=== PATIENT | male | born 1965 | race Caucasian/White ===

== ENCOUNTER → 2020-05-04 | Outpatient (CLI) | payer MEDICAID ==
[2020-05-04 13:52] LABS: Basophils # (A) 0.1 k/uL (0-0.2); Basophils % (A) 1 %; Eosinophils # (A) 0.1 k/uL (0-0.7); Eosinophils % (A) 2 %; HCT 47.2 % (39.0-53.0); HGB 15.8 gm/dL (13.0-17.5); Lymphocytes # (A) 2.4 k/uL (1.0-4.8); Lymphocytes % (A) 27 %; MCH 29.8 pg (25.0-35.0); MCHC 33.5 g/dL (31.0-37.0); Mean Platelet Volume 6.8; Monocytes # (A) 0.6 k/uL (0-1.0); Monocytes % (A) 7 %; Neutrophils # (A) 5.5 k/uL (1.3-7.7); Neutrophils % (A) 62 %; Platelet Count 216 k/uL (150-450); RDW 13.5 % (11.5-15.5); WBC 8.8 k/uL (3.8-10.6)
[2020-05-04 19:21] LABS: LDL Cholesterol,Calculated 118.2 mg/dL (0.0-131.0); VLDL Calculation 33.8 mg/dL (5.00-40.00)
[2020-05-04 19:22] LABS: African American GFR (CKD) 87.1 (60.0-200.0); Albumin 4.6 g/dL (3.80-4.90); Albumin/Globulin Ratio 1.84 (1.60-3.17); Anion Gap 9.4 mmol/L (4.00-12.00); BUN/Creat Ratio 14.55 Ratio (12.00-20.00); Calcium 9.8 mg/dL (8.7-10.3); Carbon Dioxide 24.6 mmol/L (21.6-31.8); Globulin 2.5 g/dL (1.6-3.3); Non-African American GFR(CKD) 75.2 (60.0-200.0); Potassium 4.6 mmol/L (3.5-5.5); Total Bilirubin 2.1 mg/dL (0.2-1.2); Total Protein 7.1 g/dL (6.2-8.2)
[2020-05-04 19:32] LABS: PSA Annual Screen 0.8 ng/mL (0.0-4.0)
== END | disposition home or self-care (01) ==
LOC: LABWHC1 12:27
PROVIDERS: ATTEND Internal Medicine Critical Care Medicine
DX: Z00.00 Encounter for general adult medical examination without abnormal findings (principal); E78.5 Hyperlipidemia, unspecified; Z12.5 Encounter for screening for malignant neoplasm of prostate
CPT/HCPCS: 84439; 80061; 80053; 84443; 85025; 36415; G0103

== ENCOUNTER → 2020-06-01 | Day surgery (SDC) | payer MEDICAID ==
[2020-05-30 13:27] VITALS: BMI 34.7
[~2020-06-01] MED LIST: LACTATED RINGERS 1,000 ML IV SCH; LIDOCAINE 1% (10MG/ML) FOR IV START SQ ONE; PROPOFOL 10 MG/ML 20 ML VIAL IV ONE
[2020-06-01 10:22] VITALS: TEMP 97.4
--- NOTE | 2020-06-01 11:53 | P.PCN ---
Date of Procedure: 06/01/20 Procedure(s) Performed: BRIEF HISTORY: Patient is a 55-year-old pleasant white male scheduled for an elective colonoscopy as a part of screening for colorectal neoplasia. PROCEDURE PERFORMED: Colonoscopy with snare polypectomy, hot biopsy, Endo Clip placement and tattooing with Lacey ink. PREOPERATIVE DIAGNOSIS: Screening for colon cancer. IV sedation per Anesthesia. PROCEDURE: After informed consent was obtained, the patient, was brought into the endoscopy unit. IV sedation was administered by Anesthesia under continuous monitoring. Digital rectal examination was normal. Initially the Olympus CF-160 flexible video colonoscope was then inserted in the rectum, gradually advanced into the cecum without any difficulty. Careful examination was performed as the scope was gradually being withdrawn. Ileocecal valve and the appendiceal orifice were visualized and appeared normal. Prep was fair. Mucosa of the cecum appeared normal. In the ascending colon there was a 2 mm and 1.5 cm broad-based polyps removed by snare polypectomy. In the hepatic flexure there was a 3 cm broad-based polyp that was removed in a piecemeal fashion and almost complete polypectomy was performed. Following this Endo Clip was placed to prevent post- polypectomy bleed. He was performed with Lacey ink around the polyp. In the descending colon at 65 cm from the anal was there was a 1 cm flat polyp that could not be removed by snare polypectomy. In that was removed by hot biopsy forceps. The rest of the descending colon, sigmoid colon, and rectum appeared normal. Retroflexion was performed in the rectum and no lesions were seen. The patient tolerated the procedure well. IMPRESSION: 2 cm and 1.5 cm broad-based ascending colon polyp status post snare polypectomy 3 cm broad-based hepatic flexure polyp status post piecemeal snare polypectomy followed by Endo Clip placement and tattooing with Lacey ink 1 cm flat proximal descending colon polyp at 65 cm from the anal verge status post hot biopsy RECOMMENDATIONS: Findings of this examination were discussed with the patient as well as his family. He was advised to follow with the biopsy results. He'll be seen in office in one to 2 weeks. Reason the biopsy results will plan a repeat colonoscopy in 6 months.
[2020-06-01 12:05] VITALS: BP 144/85; PULSE 69; RESP 16
== END ==
LOC: ORWHC2ENDO 09:59
PROVIDERS: ATTEND Internal Medicine Gastroenterology
DX: Z12.11 Encounter for screening for malignant neoplasm of colon (principal); D12.2 Benign neoplasm of ascending colon; D12.3 Benign neoplasm of transverse colon; D12.4 Benign neoplasm of descending colon; D12.8 Benign neoplasm of rectum; K21.9 Gastro-esophageal reflux disease without esophagitis; E78.5 Hyperlipidemia, unspecified; J44.9 Chronic obstructive pulmonary disease, unspecified; F17.210 Nicotine dependence, cigarettes, uncomplicated; Z79.899 Other long term (current) drug therapy
CPT/HCPCS: 88305; 45384; 45385; 45381; J2704; 44404; 45382

== ENCOUNTER → 2020-06-06 | Outpatient (CLI) | payer MEDICAID ==
[2020-06-06 09:04] LABS: Bilirubin, Delta 0.3 mg/dL (0.0-0.2); Bilirubin,Unconjugated 1.7 mg/dL (0.0-1.1)
--- NOTE | 2020-06-06 09:55 | CTL ---
EXAMINATION TYPE: CT Low Dose Lung DATE OF EXAM ORDERED: 06/06/2020 HISTORY: Personal history tobacco use. Lung cancer screening CT DLP: [address] CTDI: 3.6 mGy Automated exposure control for dose reduction was used. SCREENING VISIT: Initial COMPARISON: None TECHNIQUE: Low dose computed tomography scan was performed through the chest at 1 mm thick sections a nd reconstructed images in the coronal plane at [address] DIAGNOSTIC QUALITY: Satisfactory FINDINGS: LUNG NODULES: None. LUNGS: COPD: Severity: None Fibrosis: Severity: None Lymph nodes: None. There are couple of small axillary lymph nodes noted. Other findings: None RIGHT PLEURAL SPACE: Effusion: None Calcification: None Thickening: None Pneumothorax: None LEFT PLEURAL SPACE: Effusion: None Calcification: None Thickening: None Pneumothorax: None HEART: Heart Size: Normal Coronary calcification: Mild Pericardial effusion: None OTHER FINDINGS: Upper abdomen: Normal Bony thorax: Normal Supraclavicular region: Normal Other: Ascending thoracic aorta at the level the main pulmonary artery measures 3.3 cm. The main pul monary artery at the bifurcation measures 2.3 cm. IMPRESSION: Negative low-dose CT chest FOLLOW UP CT CHEST RECOMMENDATION: Low-dose CT chest [address] LUNG RAD: 1
== END | disposition home or self-care (01) ==
LOC: RADCTMAIN 08:09
PROVIDERS: ATTEND Internal Medicine Critical Care Medicine
DX: Z12.2 Encounter for screening for malignant neoplasm of respiratory organs (principal); E78.5 Hyperlipidemia, unspecified; F17.210 Nicotine dependence, cigarettes, uncomplicated
CPT/HCPCS: 82248; 36415; G0297

== ENCOUNTER → 2021-01-11 | Outpatient (CLI) | payer MEDICAID ==
[2021-01-12 03:03] LABS: Albumin 4.7 g/dL (3.80-4.90); Albumin/Globulin Ratio 1.88 (1.60-3.17); Bilirubin, Conjugated 0.5 mg/dL (0.20-0.40); Bilirubin,Unconjugated 1.5 mg/dL; Globulin 2.5 g/dL (1.6-3.3); Total Protein 7.2 g/dL (6.2-8.2)
[2021-01-12 15:13] LABS: Hepatitis B Surface Antigen Non-Reactive (Non-Reactive); Hepatitis C IgG Antibody Non-Reactive (Non-Reactive)
== END | disposition home or self-care (01) ==
LOC: LABWHC1 13:00
PROVIDERS: ATTEND Nurse Practitioner
DX: R17 Unspecified jaundice (principal)
CPT/HCPCS: 36415; 80076; 86803; 87340

== ENCOUNTER 2021-01-24 07:46 | Day surgery (SDC) | payer MEDICAID ==
[2021-01-22 12:06] VITALS: BMI 35.7
[~2021-01-24 07:46] MED LIST changes: +LIDOCAINE 1% (10MG/ML) FOR IV START INTRADERMA PRN; -LIDOCAINE 1% (10MG/ML) FOR IV START SQ ONE; -PROPOFOL 10 MG/ML 20 ML VIAL IV ONE
[2021-01-24] MEDS ORDERED: PROPOFOL 10 MG/ML 20 ML VIAL IV ONE (08:33)
[2021-01-24 08:34] VITALS: TEMP 99
--- NOTE | 2021-01-24 09:00 | P.PCN ---
Date of Procedure: 01/24/21 Procedure(s) Performed: BRIEF HISTORY: Patient is a 55-year-old pleasant white male scheduled for an elective colonoscopy as a part of surveillance of prior colonoscopy done 6 months ago, in June 2020 that showed multiple large colon polyps and biopsies revealed tubular adenoma. PROCEDURE PERFORMED: Colonoscopy with snare polypectomy. PREOPERATIVE DIAGNOSIS: Follow-up large colon polyps noted in June 2020. IV sedation per Anesthesia. PROCEDURE: After informed consent was obtained, the patient, was brought into the endoscopy unit. IV sedation was administered by Anesthesia under continuous monitoring. Digital rectal examination was normal. Initially the Olympus CF-160 flexible video colonoscope was then inserted in the rectum, gradually advanced into the cecum without any difficulty. Careful examination was performed as the scope was gradually being withdrawn. Ileocecal valve and the appendiceal orifice were visualized and appeared normal. Prep was poor in some areas of the colon.. Mucosa of the cecum appeared normal. In the ascending colon there was a 5 mm residual polyp that was removed by snare polypectomy. There was no residual polyp noted in the hepatic flexure. Mucosa of the transverse colon, descending colon, appeared normal. In the sigmoid colon there was a 5 mm polyp removed by snare polypectomy. Scattered sigmoid diverticula seen. Rest of the sigmoid colon, and rectum appeared normal. Retroflexion was performed in the rectum and small internal and external hemorrhoids noted The patient tolerated the procedure well. IMPRESSION: 5 mm residual ascending colon polyp status post polypectomy No residual polyp noted in the hepatic flexure 5 mm colon polyp status post polypectomy Scattered left sided diverticulosis Small internal and external hemorrhoids RECOMMENDATIONS: Findings of this examination were discussed with the patient as well as his family. He was advised to follow with the biopsy sites. Recommend repeat surveillance colonoscopy in one year from now.
[2021-01-24 09:19] VITALS: BP 117/71; PULSE 75; RESP 16
== END 2021-01-24 10:03 | disposition home or self-care (01) ==
LOC: ORWHC2ENDO 07:46
PROVIDERS: ATTEND Internal Medicine Gastroenterology
DX: Z12.11 Encounter for screening for malignant neoplasm of colon (principal); K63.5 Polyp of colon; K57.30 Diverticulosis of large intestine without perforation or abscess without bleeding; K64.8 Other hemorrhoids; K64.4 Residual hemorrhoidal skin tags; Z86.010 Personal history of colon polyps; J44.9 Chronic obstructive pulmonary disease, unspecified; F17.210 Nicotine dependence, cigarettes, uncomplicated; Z98.890 Other specified postprocedural states; K21.9 Gastro-esophageal reflux disease without esophagitis; Z79.82 Long term (current) use of aspirin; Z79.899 Other long term (current) drug therapy
CPT/HCPCS: 88305; 45385; J2704

== ENCOUNTER → 2021-02-21 | Outpatient (CLI) | payer MEDICAID ==
--- NOTE | 2021-02-21 07:36 | US ---
EXAMINATION TYPE: US liver DATE OF EXAM: 02/21/2021 COMPARISON: NONE CLINICAL HISTORY: R17 UNSPECIFIED JAUNDICE. recent jaundice, physician thinks it might be Gilbert's s yndrome versus other etiology. EXAM MEASUREMENTS: Liver Length: 17.3 cm Gallbladder Wall: 0.2 cm CBD: 0.7 cm Right Kidney: 11.0 x 5.9 x 5.1 cm Pancreas: limited views appear wnl Liver: wnl Gallbladder: wnl Evidence for sonographic Garcia's sign: no CBD: wnl Right Kidney: wnl IMPRESSION: No definite sonographic abnormality seen in the abdomen.
== END | disposition home or self-care (01) ==
LOC: RADUSWWP 07:00
PROVIDERS: ATTEND Internal Medicine Gastroenterology
DX: R17 Unspecified jaundice (principal)
CPT/HCPCS: 76705

== ENCOUNTER → 2021-03-08 | Outpatient (CLI) | payer MEDICAID | END | disposition home or self-care (01) | DX: M19.042 Primary osteoarthritis, left hand (principal) ==

== ENCOUNTER → 2021-10-20 | Outpatient (CLI) | payer MEDICAID ==
--- NOTE | 2021-10-21 10:21 | CTL ---
EXAMINATION TYPE: CT Low Dose Lung DATE OF EXAM ORDERED: 10/20/2021 HISTORY: 56-year-old male Z87.891 Personal history of tobacco use. Lung cancer screening CT DLP: 149.[address] CTDI: 4.1 mGy Automated exposure control for dose reduction was used. SCREENING VISIT: Annual follow-up COMPARISON: 06/06/2020 TECHNIQUE: Low dose computed tomography scan was performed through the chest with coronal and sagitta l reconstructions. CT DIAGNOSTIC QUALITY: Satisfactory FINDINGS: Heart normal size without pericardial effusion. Mild to moderate aortic valvular calcifications are n oted. Borderline ectasia ascending aorta 3.5 cm. Minimal atherosclerotic arch calcifications. Conventional arch vessel branching anatomy. Mild asymmetric gynecomastia on the right is redemonstrated. No thoracic lymphadenopathy by CT size criteria. Mild diffuse bronchial wall thickening. Stable 2 mm posterior left upper lobe pulmonary nodule, axial image 49. No consolidation or pleural effusion. Some strandy atelectasis is noted. Tiny hiatal hernia. Visualized upper abdomen shows mild colonic diverticulosis. Bones: Moderate multilevel degenerative disc disease. Accentuated lower thoracic kyphosis. Disc osteo phyte complexes at T11-T12 and T12-L1 one day a contributing to at least mild spinal canal stenosis. IMPRESSION: 1. No new or suspicious pulmonary nodules. 2. Mild diffuse bronchial wall thickening could represent bronchitis or chronic asthma. Recommend smo leonard cessation. 3. Tiny hiatal hernia. 4. Moderate degenerative disc disease. Disc osteophyte complex at the T11-T12 and T12-L1 contributes to at least mild spinal canal stenosis. CT LUNG RAD AND CT CHEST RECOMMENDATION: Lung-Rad 2 Benign Appearance or Behavior: Continue annual sc reening with LDCT in 12 months. S Modifier (other clinically significant findings): None
== END | disposition home or self-care (01) ==
LOC: RADCTMAIN 07:43
PROVIDERS: ATTEND Internal Medicine Critical Care Medicine
DX: Z12.2 Encounter for screening for malignant neoplasm of respiratory organs (principal); K44.9 Diaphragmatic hernia without obstruction or gangrene; J98.09 Other diseases of bronchus, not elsewhere classified; Z87.891 Personal history of nicotine dependence
CPT/HCPCS: 71271

== ENCOUNTER → 2021-12-14 | Outpatient (CLI) | payer MEDICAID ==
[2021-12-14 11:43] LABS: Partial Thromboplastin Time 24.6 sec (22.0-30.0); Prothrombin Time 10.8 sec (9.0-12.0)
[2021-12-14 18:31] LABS: Basophils # (A) 0.06 X 10*3/uL (0.00-0.10); Basophils % (A) 0.7 %; Eosinophils # (A) 0.16 X 10*3/uL (0.04-0.35); Eosinophils % (A) 1.8 %; HCT 45.5 % (39.6-50.0); Immature Grans, Automated 0.5 %; Lymphocytes # (A) 1.86 X 10*3/uL (0.90-5.00); Lymphocytes % (A) 21.3 %; MCH 29.4 pg (27.0-32.0); MCV 89.2 fL (80.0-97.0); Mean Platelet Volume 9.9 fL (9.5-12.2); NRBC Per 100 WBC 0 /100 WBCS (0.0-0.0); Neutrophils # (A) 5.91 X 10*3/uL (1.80-7.70); Neutrophils % (A) 67.7 %; Platelet Count 208 X 10*3/uL (140-440); RDW 13.2 % (11.5-14.5); WBC 8.73 X 10*3/uL (4.50-10.00)
[2021-12-14 18:37] LABS: African American GFR (CKD) 86.5 (60.0-200.0); Albumin 4.5 g/dL (3.8-4.9); Albumin/Globulin Ratio 1.61 (1.60-3.17); Anion Gap 9.8 mmol/L (10.00-18.00); BUN/Creat Ratio 9.55 Ratio (12.00-20.00); Bilirubin, Conjugated 0.24 mg/dL (0.20-0.40); Bilirubin,Unconjugated 1.41 mg/dL (0.20-1.00); Blood Urea Nitrogen 10.5 mg/dL (9.0-27.0); Calcium 9.5 mg/dL (8.7-10.3); Carbon Dioxide 25.7 mmol/L (20.0-27.5); Globulin 2.8 g/dL (1.6-3.3); Non-African American GFR(CKD) 74.7 (60.0-200.0); Potassium 4.9 mmol/L (3.5-5.5); Total Bilirubin 1.7 mg/dL (0.30-1.20); Total Protein 7.3 g/dL (6.2-8.2)
== END | disposition home or self-care (01) ==
LOC: LABWHC1 09:22
PROVIDERS: ATTEND Internal Medicine Critical Care Medicine
DX: Z00.00 Encounter for general adult medical examination without abnormal findings (principal); R10.11 Right upper quadrant pain
CPT/HCPCS: 36415; 80053; 82150; 82248; 83690; 85025; 85610; 85730

== ENCOUNTER 2022-03-13 06:11 | Day surgery (SDC) | payer MEDICAID ==
[2022-03-12 11:26] VITALS: BMI 36.3
[2022-03-13] MEDS ORDERED: LACTATED RINGERS 1,000 ML IV SCH (06:12)
[2022-03-13 06:59] VITALS: TEMP 97
[2022-03-13] MEDS ORDERED: KETAMINE 10 MG/ML 20 ML VIAL ONE (07:20)
[2022-03-13] MEDS ORDERED: LIDOCAINE 2% INJ 20 MG/ML (2 ML VIAL) ONE (07:20)
[2022-03-13] MEDS ORDERED: PROPOFOL 10 MG/ML 20 ML VIAL IV ONE (07:20)
--- NOTE | 2022-03-13 07:55 | P.PCN ---
Date of Procedure: 03/13/22 Procedure(s) Performed: Brief history: Patient is a pleasant 56-year-old white male scheduled for an elective upper endoscopy as well as colonoscopy as a part of evaluation of persistent history of GERD and prior history of colon polyps. He was noted to have multiple large colon polyps in June 2020. 6-year-old His last colonoscopy was in December 2020 and was noted to have residual polyps that were removed. Procedure performed: Esophagogastroduodenoscopy biopsy Colonoscopy with snare polypectomy and hot biopsy Preoperative diagnosis: GERD History of colon polyps Anesthesia: MAC Procedure: After informed consent was obtained from the patient was brought into the endoscopy unit and IV sedation was administered by anesthesia under continuous monitoring. Initially upper endoscopy was done. The Olympus GF 160 video endoscope was inserted inserted into the mouth and esophagus intubated without any difficulty and was gradually advanced into the stomach and duodenum and carefully examined. The bulb and second part of the duodenum appeared normal. The scope was withdrawn into the stomach adequately insufflated with air and upon careful examination the antrum had mild gastritis and biopsies were done from this area. body, cardia and fundus appeared normal. The scope was then withdrawn into the esophagus. The GE junction was located at 40 cm to the incisors. Small hiatal hernia noted. There was a short segment of Haskins's esophagus extending from 39-40 cm from the incisors and multiple biopsies were done from this area. There were no erythema erosions or ulcerations. Rest of the esophagus appeared normal. Patient tolerated the procedure well. At this time the patient continued to remain sedation. Initial digital rectal examination was normal. Olympus CF 160 video colonoscope was then inserted into the rectum and gradually advanced to the cecum without any difficulty. Careful examination was performed as the scope was gradually being withdrawn. The prep was excellent. The cecum, ascending colon, transverse colon, appeared normal. The descending colon there was a 1 cm flat polyp was removed by snare polypectomy followed by hot biopsy. Rest of the descending colon, sigmoid colon and rectum appeared normal. Scattered left-sided diverticulosis seen. Ret roflexion was performed in the rectum and no lesions were noted. Patient tolerated the procedure well. Impression: 1. Upper endoscopy revealed small hiatal hernia, short segment Haskins's esophagus and mild antral gastritis 2. Colonoscopy revealed a 1 cm flat descending colon polyp status post snare polypectomy followed by hot biopsy and scattered sigmoid diverticulosis Recommendations: Findings of this examination were discussed with the patient as well as his family. He was advised to follow with the biopsy results. Recommend repeat colonoscopy in 3 years. If the biopsy of the Haskins's esophagus confirms Haskins's esophagus with no evidence of dysplasia he can have a repeat upper endoscopy in 3 years also.
[2022-03-13 08:16] VITALS: BP 131/78; PULSE 65; RESP 18
[2022-03-13] MEDS ORDERED: ONDANSETRON 4 MG/2 ML VIAL ONE (09:17)
== END 2022-03-13 09:38 | disposition home or self-care (01) ==
LOC: ORWHC2ENDO 06:11
PROVIDERS: ATTEND Internal Medicine Gastroenterology
DX: Z12.11 Encounter for screening for malignant neoplasm of colon (principal); K63.5 Polyp of colon; K29.50 Unspecified chronic gastritis without bleeding; K22.70 Barrett's esophagus without dysplasia; K44.9 Diaphragmatic hernia without obstruction or gangrene; K57.30 Diverticulosis of large intestine without perforation or abscess without bleeding; K21.9 Gastro-esophageal reflux disease without esophagitis; Z86.010 Personal history of colon polyps; E78.5 Hyperlipidemia, unspecified; F17.200 Nicotine dependence, unspecified, uncomplicated; Z79.899 Other long term (current) drug therapy
CPT/HCPCS: 88305; 45384; 45385; 43239; J2704; J2001

== ENCOUNTER → 2023-10-29 | Outpatient (CLI) | payer MEDICAID ==
--- NOTE | 2023-10-29 14:06 | CTL ---
EXAMINATION TYPE: CT Low Dose Lung DATE OF EXAM ORDERED: 10/29/2023 HISTORY: 58-year-old male current smoker with 17 pack-year history. Z12.2 SCREENING F17.210 NICOTINE DEPENDENCE, CIGARETTES. Lung cancer screening CT DLP: [address] CTDI: 2.91 mGy Automated exposure control for dose reduction was used. SCREENING VISIT: Annual follow-up COMPARISON: 10/28/2022 TECHNIQUE: Low dose computed tomography scan was performed through the chest with coronal and sagitta l reconstructions. CT DIAGNOSTIC QUALITY: Satisfactory FINDINGS: Heart upper limits of normal in size without pericardial effusion. Mild aortic valvular calcification s. Aorta normal caliber with conventional arch vessel branching anatomy. No thoracic lymph adenopathy by CT size criteria. Mild to moderate diffuse bronchial wall thickening without consolidation or pleural effusion. Some narrowing of the trachea at and just below the level of the thoracic inlet. * Unchanged 4 mm anterior right midlung pulmonary nodule, axial image 142. * Unchanged 3 mm posterior left upper lung pulmonary nodule, axial image 46. * No new pulmonary nodule is seen. Tiny hiatal hernia. There may be some underlying fatty infiltration of the liver in the visualized up per abdomen and some scattered colonic diverticulosis. Bones: Moderate degenerative disc disease mid to lower thoracic spine. IMPRESSION: 1. LungRADS 2, benign. A couple pulmonary nodules measuring up to 4 mm remain unchanged. 2. Bronchial wall thickening may be seen with bronchitis or asthma. 3. There is some narrowing of the trachea at and just below the thoracic inlet. Correlate for any pot ential symptoms of tracheomalacia. CT LUNG RAD AND CT CHEST RECOMMENDATION: Lung-Rad 2 Benign Appearance or Behavior: Continue annual sc reening with LDCT in 12 months. S Modifier (other clinically significant findings): None
== END | disposition home or self-care (01) ==
LOC: RADCTMAIN 12:17
PROVIDERS: ATTEND Internal Medicine Critical Care Medicine
DX: Z12.2 Encounter for screening for malignant neoplasm of respiratory organs (principal); R91.8 Other nonspecific abnormal finding of lung field; J98.09 Other diseases of bronchus, not elsewhere classified; F17.210 Nicotine dependence, cigarettes, uncomplicated
CPT/HCPCS: 71271

== ENCOUNTER 2024-09-18 11:07 | Emergency (ER) | payer MEDICAID ==
--- NOTE | 2024-09-18 11:12 | ED ---
URI HPI - General Chief Complaint: Upper Respiratory Infection Stated Complaint: Influenza A + Time Seen by Provider: 09/18/24 11:12 Source: patient, RN notes reviewed Mode of arrival: ambulatory Limitations: no limitations - History of Present Illness Initial Comments: This is a 59-year-old male with history of COPD type 2 diabetes presenting to the emergency department with his for complaint of bodyaches nausea congestion. Patient states that symptoms started on 09/15/24, he went to urgent care on 09/16/2024 was diagnosed with influenza A and was started on Tamiflu in the evening. States that his symptoms have not improved. He denies fevers, productive cough, abdominal pain. States he has not taken any medication today alleviate symptoms. - Related Data Home Medications Medication Instructions Recorded Confirmed Atorvastatin [Lipitor] 20 mg PO DAILY 05/30/20 03/13/22 Calcium Carbonate [Tums] 500 mg PO TID PRN 05/30/20 03/13/22 Previous Rx's Medication Instructions Recorded Dicyclomine [Bentyl] 20 mg PO QID PRN #15 tablet 11/03/22 Ipratropium-Albuterol Nebulize 3 ml INHALATION QID #25 each 09/18/24 [Duoneb 0.5 mg-3 mg/3 ml Soln] Allergies Allergy/AdvReac Type Severity Reaction Status Date / Time No Known Allergies Allergy Verified 11/03/22 13:49 Review of Systems ROS Statement: Those systems with pertinent positive or pertinent negative responses have been documented in the HPI. ROS Other: All systems not noted in ROS Statement are negative. Past Medical History Past Medical History: COPD, GERD/Reflux, Hyperlipidemia Additional Past Medical History / Comment(s): lower rt abdominal painintermittent w/ bleeding intermittently with stools History of Any Multi-Drug Resistant Organisms: None Reported Past Surgical History: Orthopedic Surgery Additional Past Surgical History / Comment(s): lt shoulder repair Past Anesthesia/Blood Transfusion Reactions: No Reported Reaction Past Psychological History: No Psychological Hx Reported Smoking Status: Current every day smoker Past Alcohol Use History: None Reported Past Drug Use History: None Reported - Past Family History Mother Family Medical History: No Reported History General Exam Limitations: no limitations General appearance: alert, in no apparent distress Neck exam: Present: normal inspection. Absent: tenderness, meningismus, lymphadenopathy Respiratory exam: Present: wheezes (bilateral), decreased breath sounds. Absent: respiratory distress, rales, rhonchi, stridor, chest wall tenderness Cardiovascular Exam: Present: regular rate, normal rhythm, normal heart sounds. Absent: systolic murmur, diastolic murmur, rubs, gallop, clicks GI/Abdominal exam: Present: soft, normal bowel sounds. Absent: distended, tenderness, guarding, rebound, rigid Extremities exam: Present: normal inspection, full ROM, normal capillary refill. Absent: tenderness, pedal edema, joint swelling, calf tenderness Back exam: Present: normal inspection Skin exam: Present: warm, dry, intact, normal color. Absent: rash Course Vital Signs 09/18/24 09/18/24 09/18/24 11:08 11:19 12:04 Temperature 98.3 F Pulse Rate 85 84 Respiratory 16 22 Rate Blood Pressure 145/87 O2 Sat by Pulse 97 Oximetry 09/18/24 09/18/24 12:13 12:20 Temperature 98.1 F Pulse Rate 84 84 Respiratory 18 Rate Blood Pressure 138/79 O2 Sat by Pulse 98 Oximetry Medical Decision Making - Medical Decision Making Was pt. sent in by a medical professional or institution (, PA, WELDING PANTOGRAPH MACHINE OPERATOR, urgent care, hospital, or retirement...) When possible be specific @ -No Did you speak to anyone other than the patient for history (EMS, parent, family, police, friend...)? What history was obtained from this source @ -No Did you review nursing and triage notes (agree or disagree)? Why? @ -I reviewed and agree with nursing and triage notes Were old charts reviewed (outside hosp., previous admission, EMS record, old EKG, old radiological studies, urgent care reports/EKG's, retirement records)? Report findings @ -No old charts were reviewed Differential Diagnosis (chest pain, altered mental status, abdominal pain women, abdominal pain men, vaginal bleeding, weakness, fever, dyspnea, syncope, headache, dizziness, GI bleed, back pain, seizure, CVA, palpatations, mental health, musculoskeletal)? @ -COVID 19, RSV, influenza, pneumonia, acute bronchitis, URI, this list is not all inclusive EKG interpreted by me (3pts min.). @ -None X-rays interpreted by me (1pt min.). @ -Chest x-ray reveals no acute cardiopulmonary process or disease CT interpreted by me (1pt min.). @ -None done U/S interpreted by me (1pt. min.). @ -None done What testing was considered but not performed or refused? (CT, X-rays, U/S, labs)? Why? @ -Viral testing was conservative at this time. Patient has tested positive for influenza A 2 days prior therefore patient has declined repeat viral testing What meds were considered but not given or refused? Why? @ -None Did you discuss the management of the patient with other professionals (professionals i.e. , PA, WELDING PANTOGRAPH MACHINE OPERATOR, lab, RT, psych nurse, health social work professor, audio production instructor, teacher, special skills officer, rehabilitation case coordinator)? Give summary @ -No Was smoking cessation discussed for >3mins.? @ -No Was critical care preformed (if so, how long)? @ -No Were there social determinants of health that impacted care today? How? (Homelessness, low income, unemployed, alcoholism, drug addiction, transportation, low edu. Level, literacy, decrease access to med. care, residential, rehab)? @ -No Was there de-escalation of care discussed even if they declined (Discuss DNR or withdrawal of care, Hospice)? DNR status @ -No What co-morbidities impacted this encounter? (DM, HTN, Smoking, COPD, CAD, Cancer, CVA, ARF, Chemo, Hep., AIDS, mental health diagnosis, sleep apnea, morbid obesity)? @ -None Was patient admitted / discharged? Hospital course, mention meds given and route, prescriptions, significant lab abnormalities, going to OR and other pertinent info. @ -discharged. 59-year-old male presenting with congestion, cough, body aches. There is noted decreased lung sounds and wheezes bilaterally. With patient's history of COPD and influenza A diagnosis patient is evaluated via chest x-ray and is provided with breathing treatment addition to Tylenol for body aches. Chest x-ray is unremarkable. Recommend patient continue supportive treatment at home such as using Tylenol Motrin as needed for body aches. He sent a refill of DuoNeb solution and instructed to continue nebulizer treatments at home. Discussed with Dr. Stauffer Undiagnosed new problem with uncertain prognosis? @ -No Drug Therapy requiring intensive monitoring for toxicity (Heparin, Nitro, Insulin, Cardizem)? @ -No Were any procedures done? @ -No Diagnosis/symptom? @ -infuenza A Acute, or Chronic, or Acute on Chronic? @ -acute Uncomplicated (without systemic symptoms) or Complicated (systemic symptoms)? @ -uncomplicated Side effects of treatment? @ -No Exacerbation, Progression, or Severe Exacerbation? @ -No Poses a threat to life or bodily function? How? (Chest pain, [place], [place], pneumonia, PE, COPD, DKA, ARF, appy, cholecystitis, CVA, Diverticulitis, Homicidal, Suicidal, threat to staff... and all critical care pts) @ -No Disposition Clinical Impression: Influenza A Disposition: HOME SELF-CARE Condition: Good Instructions (If sedation given, give patient instructions): Influenza (ED) Additional Instructions: Please return to the Emergency Department if symptoms worsen or any other concerns. Prescriptions: Ipratropium-Albuterol Nebulize [Duoneb 0.5 mg-3 mg/3 ml Soln] 3 ml INHALATION QID #25 each Is patient prescribed a controlled substance at d/c from ED?: No Referrals: Marylou Reilly MD [Primary Care Provider] - 1-2 days Time of Disposition: 12:03
[2024-09-18] MEDS: ACETAMINOPHEN TAB 500 MG TAB PO STA (11:24)
--- NOTE | 2024-09-18 11:49 | XR ---
EXAMINATION TYPE: XR chest 2V DATE OF EXAM: 09/18/2024 11:36 AM COMPARISON: None CLINICAL INDICATION: Male, 59 years old with history of cough, chills, congestion, hx COPD; [facility] TECHNIQUE: XR chest 2V Frontal and lateral views of the chest. FINDINGS: Lungs/Pleura: There is no evidence of pleural effusion, focal consolidation, or pneumothorax. Pulmonary vascularity: Unremarkable. Heart/mediastinum: Cardiomediastinal silhouette is unremarkable. Musculoskeletal: No acute osseous pathology. IMPRESSION: No acute cardiopulmonary disease/process. [facility] Ruth, , 09/18/2024 11:46 AM
[2024-09-18] MEDS: IPRATROPIUM-ALBUTEROL 3 ML NEB INHALATION STA (12:03)
[2024-09-18 12:07] VITALS: PULSE 84
[2024-09-18 12:22] VITALS: BP 138/79; RESP 18; TEMP 98.1
== END 2024-09-18 11:12 | disposition home or self-care (01) ==
LOC: EC 11:07
DX: J10.1 Influenza due to other identified influenza virus with other respiratory manifestations (principal); F17.200 Nicotine dependence, unspecified, uncomplicated
CPT/HCPCS: 71046; 94640; 99283

== ENCOUNTER → 2024-10-30 | Outpatient (CLI) | payer MEDICAID ==
--- NOTE | 2024-10-30 08:41 | CTL ---
EXAMINATION TYPE: CT Low Dose Lung DATE OF EXAM ORDERED: 10/30/2024 COMPARISON: CT Low Dose Lung 10/29/2023, 10/28/2022, 10/20/2021, 06/06/2020 CLINICAL INDICATION: Male, 59 years old with history of Z12.2 SCREENING Z87.891 PERS HX OF GRECIA DEPEND ; [facility], Former smoker, quit this year, was 1 ppd x 35 years, Lung cancer screening, History of Smoking /tobacco use. TECHNIQUE: Low dose computed tomography scan was performed through the chest at 1 mm thick sections a nd reconstructed images in multiple planes at 1 mm and [address] DLP: 95.[address] CTDI: 2.6 mGy Automated exposure control for dose reduction was used. CT DIAGNOSTIC QUALITY: Satisfactory FINDINGS: Nodules: Stable right middle lobe 3.5 mm pulmonary nodule along the minor fissure (series 4, image 134). Stable posterior left upper lobe 2 mm pulmonary nodule (series 4, image 43). No new or enlarging pulmonary nodules. LUNGS: COPD: Severity: Mild Fibrosis: Severity: None Lymph nodes: None Other findings: None RIGHT PLEURAL SPACE: Effusion: None Calcification: None Thickening: None Pneumothorax: None LEFT PLEURAL SPACE: Effusion: None Calcification: None Thickening: None Pneumothorax: None HEART: Heart Size: Normal size with mild aortic valvular calcifications. Coronary Calcification: None Pericardial Effusion: None OTHER FINDINGS: Upper abdomen: The gallbladder is not visualized and may be surgically absent versus contracted. Bony thorax: Mild to moderate multilevel degenerative disc disease. Supraclavicular region: None Other: Right-sided gynecomastia IMPRESSION: Couple of stable pulmonary nodules measuring less than 4 mm. No new or enlarging pulmonary nodules. CT LUNG RAD AND CT CHEST RECOMMENDATION: Lung-Rad 2 Benign Appearance or Behavior: Continue annual sc reening with LDCT in 12 months. S Modifier (other clinically significant findings): None [facility], , 10/30/2024 8:38 AM
== END | disposition home or self-care (01) ==
LOC: RADCTMAIN 07:51
PROVIDERS: ATTEND Internal Medicine Critical Care Medicine
DX: Z12.2 Encounter for screening for malignant neoplasm of respiratory organs (principal); R91.8 Other nonspecific abnormal finding of lung field; Z87.891 Personal history of nicotine dependence
CPT/HCPCS: 71271